=== PATIENT | female | born 1990 | race Caucasian/White ===

== ENCOUNTER 2017-10-08 16:26 | Emergency (ER) | payer MEDICAID, SELFPAY ==
[2017-10-08] MEDS ORDERED: traMADol HCl 50 MG TAB ONE (20:28)
[2017-10-08] MEDS ORDERED: Diazepam 5 MG TAB ONE (20:29)
--- NOTE | 2017-10-08 20:44 | RAD ---
TWO VIEWS LUMBAR SPINE: 10/08/17 HISTORY: Back pain. AP and lateral views of the lumbar spine obtained. Two views lumbar spine demonstrate five nonribbearing lumbar vertebrae. Vertebral bodies are unremark able. No evidence of acute fractures or bony lesions seen. IMPRESSION: Normal two views lumbar spine. POS: [facility]
== END 2017-10-08 20:45 | disposition home or self-care (01) ==
LOC: MADERS 16:26
DX: S29.012A Strain of muscle and tendon of back wall of thorax, initial encounter (principal); X50.1XXA Overexertion from prolonged static or awkward postures, initial encounter
CPT/HCPCS: 72100

== ENCOUNTER 2023-02-04 12:39 | Emergency (ER) | payer OTHER ==
[2023-02-04] MEDS ORDERED: Carbamide Peroxide 6.5% Otic Drops 15 ml Bottle ONE (13:14)
== END 2023-02-04 14:26 | disposition home or self-care (01) ==
LOC: MADERS 12:39
DX: J06.9 Acute upper respiratory infection, unspecified (principal); H61.21 Impacted cerumen, right ear; Z20.822 Contact with and (suspected) exposure to COVID-19
CPT/HCPCS: 87081; 87430; 87635; 87804; 99283